=== PATIENT | female | born 1990 | race Asian ===

== ENCOUNTER 2018-10-05 20:27 | Emergency (ER) | payer OTHER ==
[~2018-10-05] VITALS: Ht 162.6 cm; Wt 72.6 kg
[2018-10-05 20:31] VITALS: BP 124/80
--- NOTE | 2018-10-05 20:35 | NUR ---
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 +redness, swelling and tenderness..
[2018-10-05] MEDS ORDERED: NKM (20:36)
[2018-10-05] MEDS ORDERED: Bacitracin Oint UD TOPIC ONE (21:00)
[2018-10-05] MEDS ORDERED: IBUPROFEN600 MG ORAL (21:02)
[2018-10-05] MEDS ORDERED: MUPIROCIN22 GM TOPIC (21:02)
--- NOTE | 2018-10-05 21:03 | Emergency Room Report ---
History of Present Illness General Chief Complaint: Upper Extremity Injury Source: Patient Present Illness HPI Is a 28-year-old female who is right-hand dominant. 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 She presents with injury to her left third finger. 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 She sustained a motion of the distal third of the nail. No other injury. No active bleeding now. Pain is 7 out of 10. No other injury. Allergies: Coded Allergies: No Known Allergies (Unverified , 10/05/18) Patient History Past Medical History: none, see triage record, old chart reviewed Past Surgical History: none Pertinent Family History: none Social History: Denies: smoking Last Menstrual Period: sep 04 Now: No Immunizations: UTD Reviewed Nursing Documentation: PMH: Agreed; PSxH: Agreed Nursing Documentation-PMH Past Medical History: No Stated History Review of Systems Eye: Denies: eye pain, blurred vision ENT: Denies: ear pain, nose congestion, throat swelling Respiratory: Denies: cough, shortness of breath Cardiovascular: Denies: chest pain, palpitations Gastrointestinal: Denies: abdominal pain, diarrhea, nausea, vomiting Musculoskeletal: Denies: back pain, joint pain Skin: Denies: rash Neurological: Denies: headache, numbness Endocrine: Denies: increased thirst, increased urine Hematologic/Lymphatic: Denies: easy bruising All Other Systems: negative except mentioned in HPI Physical Exam Vital Signs Date Time Temp Pulse Resp B/P (MAP) Pulse Ox O2 Delivery O2 Flow Rate FiO2 10/05/18 20:31 99.0 83 16 128/89 98 Room Air vitals normal Sp02 EP Interpretation: reviewed, normal General Appearance: well appearing, no apparent distress, alert Head: normocephalic, atraumatic Eyes: bilateral eye PERRL, bilateral eye EOMI ENT: hearing grossly normal, normal pharynx Neck: full range of motion, supple, no meningismus Respiratory: chest non-tender, lungs clear, normal breath sounds Cardiovascular #1: regular rate, rhythm, no murmur Gastrointestinal: normal bowel sounds, non tender, no mass, no organomegaly, no bruit, non-distended Musculoskeletal: back normal, gait/station normal, normal range of motion, other - Left third finger: There is a crush injury with total avulsion of the distal third of the fingernail. No no bed laceration. Sensation normal. DIP joint intact. Psychiatric: mood/affect normal Skin: warm/dry Medical Decision Making Diagnostic Impression: Primary Impression: Nail avulsion, finger Qualified Codes: S61.309A - Unspecified open wound of unspecified finger with damage to nail, initial encounter ER Course Patient with partial avulsion of her fingernail. There is no nailbed laceration her to be sutured. No evidence of fracture. We'll discharge home. Last Vital Signs Date Time Temp Pulse Resp B/P (MAP) Pulse Ox O2 Delivery O2 Flow Rate FiO2 10/05/18 20:31 99.0 83 16 128/89 98 Room Air Status: improved Disposition: HOME, SELF-CARE Condition: Stable Scripts Ibuprofen* (MOTRIN*) 600 Mg Tablet 600 MG ORAL THREE TIMES A DAY, #30 TAB 0 Refills Prov: Jerald Holloway MD 10/05/18 Mupirocin* (MUPIROCIN*) 22 Gm Oint...g. 1 APPLIC TOPIC THREE TIMES A DAY, #22 GM Prov: Jerald Holloway MD 10/05/18 Additional Instructions: Keep wound clean. Follow-up with employee health in 2-3 days for recheck. Return if worse. Jerald Holloway MD Oct 05, 2018 21:03
[2018-10-05 21:25] VITALS: BP 128/67
--- NOTE | 2018-10-05 21:25 | NUR ---
ED Nurse Note: pt wound cleaned with NS and applied dressing, pt discharge instruction provided w/ prescription, pt wristband removed, pt education done via discussion and handout, pt advised to follow up with pcp or return to ed if s/s worsen or new s/s develop, pt verbalized understanding and agrees with plan, all belongings left with pt.
--- NOTE | 2018-10-06 10:38 | Diagnostic Imaging Report ---
Indication: Third finger injury and pain Technique: 3 views of the left third finger Comparison: none Findings: No acute fractures. No dislocations. The joint spaces are preserved. Impression: Negative
== END 2018-10-05 21:25 | disposition home or self-care (01) ==
LOC: EMR 21:00 → EEVIPCON 21:00 → EMR 21:25
DX: S67.193A Crushing injury of left middle finger, initial encounter (principal); S61.303A Unspecified open wound of left middle finger with damage to nail, initial encounter; X58.XXXA Exposure to other specified factors, initial encounter; Y92.239 Unspecified place in hospital as the place of occurrence of the external cause; Y99.0 Civilian activity done for income or pay
CPT/HCPCS: 99283